=== PATIENT | female | born 1950 | race Caucasian/White ===

== ENCOUNTER 2016-10-15 11:52 | Emergency (ER) | payer OTHER ==
[~2016-10-15] VITALS: Ht 149.9 cm; Wt 85.0 kg
[~2016-10-15 11:52] MED LIST: AMLO10 PO; CIPR250T2 PO; CLIN1CAP5 PO; CORE25TA PO; GLYB1TAB50 PO; NAPR-576 PO; PHEN12.5 PR; RAMI10CA PO
[2016-10-15 11:54] VITALS: BP 185/86; PULSE 66; RESP 20; TEMP 98.7; O2SAT 95
[2016-10-15] MEDS ORDERED: RAMI10CA PO (12:06)
[2016-10-15] MEDS ORDERED: AMLO10 PO (12:06)
[2016-10-15] MEDS ORDERED: GLYB2.5T3 PO (12:06)
[2016-10-15] MEDS ORDERED: CARV25TA PO (12:06)
[2016-10-15] MEDS ORDERED: SODIUM CHLOR 0.9% 1000 ML INJ 1,000 ML IV ONE (12:30)
[2016-10-15] MEDS ORDERED: DIPHTH/TETANUS/ACEL PERTUSSIS (BOOSTER) 0.5 ML VIAL/PFS IM ONE (12:30)
[2016-10-15] MEDS ORDERED: VANCOMYCIN INJ 1,300 MG in SODIUM CHLORID 0.9% 500 ML INJ 500 ML IV ONE (12:30)
[2016-10-15] MEDS ORDERED: MORPHINE SULFATE 4 MG/ML INJ IV PUSH ONE (12:45)
--- NOTE | 2016-10-15 12:49 | PD ---
HPI Chief Complaint: Skin Problem Time Seen by Provider: 12:00 Travel History International Travel<30 days: No Contact w/Intl Traveler<30days: No Traveled to known affect area: No History of Present Illness HPI Patient is a 66 year old female with hx of diabetes, htn, who presents to ER with c/o of abscess to her back. Patient reports that she had an abscess surgically removed 15 years ago while she lived in [place]. Reports that she has noticed a "bump" to her back for the past few months. Reports that for the past week, she has noticed increased swelling and pain to her back. Reports that noticed that the abscess is draining, reports that she has been having chills with no fevers. Reports that tetanus is not up date. PFSH Past Medical History Asthma: No Blood Disorders: No Anxiety: No Depression: No Heart Rhythm Problems: No Cancer: Yes (OVARIAN) Cardiovascular Problems: Yes High Cholesterol: No Chest Pain: No Congestive Heart Failure: No COPD: No Diabetes: Yes Patient Takes Glucophage: No Diminished Hearing: No Endocrine: Yes Genitourinary: No Hypertension: Yes Immune Disorder: No Musculoskeletal: No Neurologic: No Psychiatric: No Reproductive: No Respiratory: No Sleep Apnea: No Thyroid Disease: No Menopausal: Yes Past Surgical History Cholecystectomy: Yes Hysterectomy: Yes Other Surgery: Yes (L KNEE ) Social History Alcohol Use: Yes (occ) Tobacco Use: Yes (1 PPD) Substance Use: No Allergies-Medications (Allergen,Severity, Reaction): Coded Allergies: No Known Allergies (Verified , 10/15/16) Reported Meds & Prescriptions Reported Meds & Active Scripts Active Reported Glyburide 2.5 Mg Tab 2.5 Mg PO DAILY Take with meals at the same time each day Ramipril 10 Mg Cap 10 Mg PO DAILY Carvedilol 25 Mg Tab 25 Mg PO DAILY Norvasc (Amlodipine Besylate) 10 Mg Tab 10 Mg PO DAILY Review of Systems General / Constitutional: No: Fever Eyes: No: Visual changes HENT: No: Headaches Cardiovascular: No: Chest Pain or Discomfort Respiratory: No: Shortness of Breath Gastrointestinal: No: Abdominal Pain Genitourinary: No: Dysuria Musculoskeletal: No: Pain Skin: Positive Other (abscess to back), No Rash Neurologic: No: Weakness Psychiatric: No: Depression Endocrine: No: Polydipsia Hematologic/Lymphatic: No: Easy Bruising Physical Exam Narrative GENERAL: mild distress SKIN: Warm and dry. patient with fluctuant abscess versus infected sebaceous cyst to right mid back HEAD: Atraumatic. Normocephalic. EYES: Pupils equal and round. No scleral icterus. No injection or drainage. ENT: No nasal bleeding or discharge. Mucous membranes pink and moist. NECK: Trachea midline. No JVD. CARDIOVASCULAR: Regular rate and rhythm. No murmur appreciated. RESPIRATORY: No accessory muscle use. Clear to auscultation. Breath sounds equal bilaterally. GASTROINTESTINAL: Abdomen soft, non-tender, nondistended. Hepatic and splenic margins not palpable. MUSCULOSKELETAL: No obvious deformities. No clubbing. No cyanosis. No edema. NEUROLOGICAL: Awake and alert. No obvious cranial nerve deficits. Motor grossly within normal limits. Normal speech. PSYCHIATRIC: Appropriate mood and affect; insight and judgment normal. Data Data Last Documented VS Vital Signs Date Time Temp Pulse Resp B/P Pulse Ox O2 Delivery O2 Flow Rate FiO2 10/15/16 15:14 73 20 181/79 95 Room Air 10/15/16 11:54 98.7 Orders Complete Blood Count With Diff (10/15/16 12:18) Comprehensive Metabolic Panel (10/15/16 12:18) Prothrombin Time / Inr (Pt) (10/15/16 12:18) Act Partial Throm Time (Ptt) (10/15/16 12:18) Urinalysis - C+S If Indicated (10/15/16 12:18) Blood Culture (10/15/16 12:18) Iv Access Insert/Monitor (10/15/16 12:18) Vancomycin Inj (Vancomycin Inj) (10/15/16 12:30) Oyyz-Xoe-Uhyilz (Booster) Inj (Boostrix (10/15/16 12:30) Ct Thorax/ Chest W Iv Contrast (10/15/16 ) Sodium Chlor 0.9% 1000 Ml Inj (Ns 1000 M (10/15/16 12:30) Morphine Inj (Morphine Inj) (10/15/16 12:45) Urine Culture (10/15/16 12:45) Iohexol 350 Inj (Omnipaque 350 Inj) (10/15/16 15:10) Hydromorphone Pf Inj (Dilaudid Pf Inj) (10/15/16 15:15) Labs Laboratory Tests Test 10/15/16 12:45 White Blood Count 16.3 TH/MM3 Red Blood Count 4.44 MIL/MM3 Hemoglobin 12.7 GM/DL Hematocrit 35.9 % Mean Corpuscular Volume 81.0 FL Mean Corpuscular Hemoglobin 28.5 PG Mean Corpuscular Hemoglobin 35.2 % Concent Red Cell Distribution Width 13.1 % Platelet Count 244 TH/MM3 Mean Platelet Volume 8.7 FL Neutrophils (%) (Auto) 78.4 % Lymphocytes (%) (Auto) 12.7 % Monocytes (%) (Auto) 8.3 % Eosinophils (%) (Auto) 0.3 % Basophils (%) (Auto) 0.3 % Neutrophils # (Auto) 12.8 TH/MM3 Lymphocytes # (Auto) 2.1 TH/MM3 Monocytes # (Auto) 1.4 TH/MM3 Eosinophils # (Auto) 0.0 TH/MM3 Basophils # (Auto) 0.1 TH/MM3 CBC Comment DIFF FINAL Differential Comment Prothrombin Time 13.1 SEC Prothromb Time International 1.2 RATIO Ratio Activated Partial 31.4 SEC Thromboplast Time Urine Color YELLOW Urine Turbidity HAZY Urine pH 6.0 Urine Specific [place] 1.024 Urine Protein 30 mg/dL Urine Glucose (UA) NEG mg/dL Urine Ketones NEG mg/dL Urine Occult Blood NEG Urine Nitrite NEG Urine Bilirubin NEG Urine Urobilinogen 4.0 MG/DL Urine Leukocyte Esterase NEG Urine RBC 2 /hpf Urine Squamous Epithelial 3 /hpf Cells Urine Bacteria MOD /hpf Urine Mucus FEW /lpf Microscopic Urinalysis Comment CATH-CULTURE IND Sodium Level 134 MEQ/L Potassium Level 4.1 MEQ/L Chloride Level 95 MEQ/L Carbon Dioxide Level 31.5 MEQ/L Anion Gap 8 MEQ/L Blood Urea Nitrogen 9 MG/DL Creatinine 0.90 MG/DL Estimat Glomerular Filtration 63 ML/MIN Rate Random Glucose 184 MG/DL Calcium Level 8.7 MG/DL Total Bilirubin 1.1 MG/DL Aspartate Amino Transf 9 U/L (AST/SGOT) Alanine Aminotransferase 18 U/L (ALT/SGPT) Alkaline Phosphatase 74 U/L Total Protein 7.6 GM/DL Albumin 3.6 GM/DL MDM Medical Decision Making Medical Screen Exam Complete: Yes Emergency Medical Condition: Yes Interpretation(s) Vital Signs Date Time Temp Pulse Resp B/P Pulse Ox O2 Delivery O2 Flow Rate FiO2 10/15/16 11:54 98.7 66 20 185/86 95 Room Air Differential Diagnosis Abscess, infected sebaceous cyst, cellulitis Narrative Course Patient is a 66 year old female with hx of diabetes, htn, who presents to ER with c/o of abscess to her back. Patient reports that she had an abscess surgically removed 15 years ago while she lived in [place]. Reports that she has noticed a "bump" to her back for the past few months. Reports that for the past week, she has noticed increased swelling and pain to her back. Reports that noticed that the abscess is draining, reports that she has been having chills with no fevers. Reports that tetanus is not up date. Plan to update patient's tetanus from emergency room. We'll give a dose of IV vancomycin. Labs as well as CT of the chest ordered to further evaluate abscess. CBC & BMP Diagram 10/15/16 12:45 CT of the thorax shows a 4.8 x 6.2 cm abscess in the greatest lazara dimension of 4.1cm proximal to distal. I did I&D patient's abscess, I had significant amount of purulent foul-smelling drainage from abscess. Just need for patient to follow-up with general surgeon as I do think that this is an infected sebaceous cyst which will need surgical resection. Patient will call general surgeon first thing in the morning for earliest follow-up appointment. I also discussed with patient need to return to the emergency room and 48 hours for packing removal and wound check. We'll start patient on antibiotics, understands need to return to the emergency room if she develops any fevers or chills. Patient will follow-up with all cultures from today. A copy of patient 's CAT scan report was given to her, she'll bring this her doctor's office for follow-up. Patient reports that she is feeling much better after I&D Procedures Procedure Narrative SKIN: There is an indurated area in the right lower to mid back which measures about 5x7 cm in diameter. 4ml of 1%lidocaine used to numb skin. The abscess was fluctuant with areas of purulent drainage. There is a zone of inflammation around it but no lymphangitis. an 11 blade scapel was used to make a cruciate incision to the area, a significant amount of cheesy thick purulent pus was removed. Abscess was explored for loculations. Area irrigated with NS. Abscess is packed with 1/2cm packing. Dressings placed after procedure Diagnosis Primary Impression: Abscess Additional Impression: UTI (urinary tract infection) Qualified Code: N30.00 - Acute cystitis without hematuria Referrals: Ken Salcedo MD Patient Instructions: General Instructions Additional Instructions: Please return to the emergency room in 48 hours for packing removal and for wound check Please return to the emergency room if you develop any fevers or chills Please call general surgeon first thing in the morning for earliest follow-up appointment Please bring your CT report to your doctor's office for follow up on all findings from today Please take antibiotics as prescribed Please follow-up with cultures from today Please do not drive while taking narcotic pain medications Med/Other Pt SpecificInfo: Prescription(s) given Scripts Oxycodone-Acetaminophen (Percocet)5-325 mg Tab1 Tab PO Q6H PRN (PAIN) #10 TAB Ref 0 Prov:Leslie Warner DO 10/15/16 Sulfamethoxazole-Trimethoprim (Bactrim DS)800-160 Mg Tab2 Tab PO BID 10 Days Ref 0 Prov:Leslie Warner DO 10/15/16 Cephalexin (Keflex)500 Mg [id number] Mg PO Q6H 10 Days Ref 0 Prov:Leslie Warner DO 10/15/16 Disposition: 01 DISCHARGE HOME Condition: Stable Leslie Warner DO Oct 15, 2016 12:49
[2016-10-15 13:09] LABS: AUTOMATED NEUTROPHIL # 12.8 TH/MM3 (1.8-7.7); BASOPHIL # 0.1 TH/MM3 (0-0.2); BASOPHIL % 0.3 % (0.0-2.0); EOSINOPHIL % 0.3 % (0.0-4.0); HEMATOCRIT 35.9 % (35.0-46.0); HEMO FLAGS DIFF FINAL; LYMPH % 12.7 % (9.0-44.0); LYMPHOCYTE # 2.1 TH/MM3 (1.0-4.8); MEAN CORPUSCULAR HEMOGLOBIN 28.5 PG (27.0-34.0); MEAN CORPUSCULAR HGB CONC 35.2 % (32.0-36.0); MONO % 8.3 % (0.0-8.0); NEUT % 78.4 % (16.0-70.0); PLATELET COUNT 244 TH/MM3 (150-450); RED BLOOD COUNT 4.44 MIL/MM3 (4.00-5.30); RED CELL DISTRIBUTION WIDTH 13.1 % (11.6-17.2); WHITE BLOOD COUNT 16.3 TH/MM3 (4.0-11.0)
[2016-10-15 13:20] LABS: APTT (PATIENT) 31.4 SEC (24.3-30.1); INTERNATIONAL NORMALIZED RATIO 1.2 RATIO; PROTHROMBIN TIME - PATIENT 13.1 SEC (9.8-11.6)
[2016-10-15 13:23] LABS: BACTERIA, URINE MOD /hpf; BLOOD, URINE NEG (NEG); GLUCOSE,URINE NEG (NEG); KETONE, URINE NEG (NEG); MUCUS URINE FEW /lpf (OCC); NITRITE,URINE NEG (NEG); SQUAMOUS EPITHELIAL CELL URINE 3 /hpf (0-5); URINE COLOR YELLOW (YELLW/STRAW)
[2016-10-15 13:28] LABS: COMMENT (UR) CATH-CULTURE IND; CULTURE IF INDICATED CATH CULTURE IND
[2016-10-15 13:36] LABS: ANION GAP 8 MEQ/L (5-15); AST (GOT) 9 U/L (15-37); BICARBONATE 31.5 MEQ/L (21.0-32.0); BLOOD UREA NITROGEN 9 MG/DL (7-18); CHLORIDE 95 MEQ/L (98-107); GLOMERULAR FILTRATION RATE 63 ML/MIN (>89); POTASSIUM 4.1 MEQ/L (3.5-5.1); SODIUM (NA) 134 MEQ/L (136-145)
[2016-10-15 13:40] LABS: ALKALINE PHOSPHATASE 74 U/L (45-117); ALT (GPT) 18 U/L (10-53); TOTAL BILIRUBIN ADULT 1.1 MG/DL (0.2-1.0)
[2016-10-15] MEDS ORDERED: IOHEXOL 350 MG/ML 10 ML VIAL (for RAD DIAG) IV ONE (15:10)
[2016-10-15 15:14] VITALS: BP 181/79; PULSE 73; RESP 20; O2SAT 95
[2016-10-15] MEDS ORDERED: HYDROmorphone HCL PF 1 MG/ML VIAL IV PUSH ONE ×2 (15:15→17:15)
--- NOTE | 2016-10-15 15:37 | RADRPT ---
EXAM DATE/TIME: 10/15/2016 14:54 [facility] COMPARISON: No previous studies available for comparison. INDICATIONS : Right upper back pain, evaluate for abscess. IV CONTRAST: 70 cc Omnipaque 350 (iohexol) IV RADIATION DOSE: 5.71 CTDIvol (mGy) MEDICAL HISTORY : Hypertension. ovarian cancer, diabetes SURGICAL HISTORY : Hysterectomy. ENCOUNTER: Initial ACUITY: 1 week PAIN SCALE: 6/10 LOCATION: Right upper back TECHNIQUE: Volumetric scanning of the chest was performed. Using automated exposure control and adjustment of t he mA and/or kV according to patient size, radiation dose was kept as low as reasonably achievable to obtain optimal diagnostic quality images. FINDINGS: Subcutaneous air and fluid collection is seen near the level of T11 and T12, just right of midline. T his is estimated at approximately 4.8 x 6.2 cm in greatest transaxial dimension and 4.1 cm proximal t o distal. Superficial margin of the collection is just beneath the skin. The deep margin abuts the pa raspinous muscles and medial margin of the latissimus but I don't see deep soft tissue extension. No acute bony abnormality demonstrated. Minimal atelectasis of the visualized lung bases. No pleural effusion or pneumothorax. Heart siz e within normal limits. There is coronary artery calcification. Upper abdomen only partly included on the study. Patient has had previous cholecystectomy. There is air in the biliary tree, nonspecific but presumably chronic and related to previous sphincterotom y. The rest of the visualized upper abdomen is within normal limits. CONCLUSION: Posterior lower thoracic subcutaneous abscess as above. The air and fluid collection is slightly righ t of midline at the level of T11 and T12. No deep soft tissue involvement. No osteomyelitis.. Sunny Salas MD on October 15, 2016 at 15:31 Board Certified Radiologist. This report was verified electronically.
[2016-10-15] MEDS ORDERED: PERC5TAB12 PO (16:58)
[2016-10-15] MEDS ORDERED: BACT800T5 PO (16:58)
[2016-10-15] MEDS ORDERED: CEPH-460 PO (16:58)
[2016-10-15 17:00] VITALS: BP 162/73; PULSE 78; RESP 16; O2SAT 97
== END 2016-10-15 20:02 | disposition home or self-care (01) ==
LOC: NEPC 11:52
DX: L02.212 Cutaneous abscess of back [any part, except buttock and flank] (principal); N39.0 Urinary tract infection, site not specified; E11.9 Type 2 diabetes mellitus without complications; I10 Essential (primary) hypertension; F17.210 Nicotine dependence, cigarettes, uncomplicated; B96.89 Other specified bacterial agents as the cause of diseases classified elsewhere
CPT/HCPCS: 10061; 71260; 80053; 81001; 85025; 85610; 85730; 87040; 87070; 87086; 87185; 90471; 90715; 96365; 96366; 96375; 96376; 99284; J1170; J2270; J3370; J7030; J7040; Q9967; 87205

== ENCOUNTER 2016-10-18 10:18 | Emergency (ER) | payer OTHER ==
[~2016-10-18] VITALS: Ht 149.9 cm; Wt 85.0 kg
[~2016-10-18 10:18] MED LIST changes: +BACT800T5 PO; +CARV25TA PO; +CEPH-460 PO; -CIPR250T2 PO; -CLIN1CAP5 PO; -CORE25TA PO; -GLYB1TAB50 PO; +GLYB2.5T3 PO; -NAPR-576 PO; +PERC5TAB12 PO; -PHEN12.5 PR
[2016-10-18 10:19] VITALS: BP 207/89; PULSE 52; RESP 14; TEMP 98.1; O2SAT 98
--- NOTE | 2016-10-18 10:58 | PD ---
HPI Chief Complaint: Wound/Suture/Staple Re-Check Time Seen by Provider: 10:40 Travel History International Travel<30 days: No Contact w/Intl Traveler<30days: No Traveled to known affect area: No History of Present Illness HPI This 66-year-old woman with a back abscess drained 2 days ago with a small cruciate incision and packed. Here for wound check. She reports she is placed on antibiotics. She's had some improvement saw some pain. She otherwise has been doing well. History Past Medical History Narrative Medical Hypertension Cardiovascular problems Menopausal: Yes Social History Alcohol Use: Yes (occ) Tobacco Use: Yes (1 PPD) Allergies-Medications (Allergen,Severity, Reaction): Coded Allergies: No Known Allergies (Verified , 10/18/16) Reported Meds & Prescriptions Reported Meds & Active Scripts Active Percocet (Oxycodone-Acetaminophen) 5-325 mg Tab 1 Tab PO Q6H PRN Bactrim DS (Sulfamethoxazole-Trimethoprim) 800-160 Mg Tab 2 Tab PO BID 10 Days Keflex (Cephalexin) 500 Mg Cap 500 Mg PO Q6H 10 Days Reported Glyburide 2.5 Mg Tab 2.5 Mg PO DAILY Take with meals at the same time each day Ramipril 10 Mg Cap 10 Mg PO DAILY Carvedilol 25 Mg Tab 25 Mg PO DAILY Norvasc (Amlodipine Besylate) 10 Mg Tab 10 Mg PO DAILY Review of Systems Except as stated in HPI: all other systems reviewed are Neg Physical Exam Narrative GENERAL: Well-appearing 66-year-old woman, no acute distress. SKIN: Back exam shows some denuded skin. There is a small central cruciate incision. There is some induration surrounding it. A large amount of packing was removed from the small incision. Given this apparent size a cavity, and the small incision was used to drain it, I did replace a small gauze wick, about 6 inches or so. Data Data Last Documented VS Vital Signs Date Time Temp Pulse Resp B/P Pulse Ox O2 Delivery O2 Flow Rate FiO2 10/18/16 10:19 98.1 52 14 207/89 98 Room Air MDM Medical Decision Making Medical Screen Exam Complete: Yes Emergency Medical Condition: Yes Differential Diagnosis Abscess, cellulitis, other Narrative Course Medical decision-making new para 66 old woman with an abscess, drained 2 days ago. Appears to be healing well. I replaced the wick and given the previous size of it, recommended [place] wound check in 48 hours. Diagnosis Primary Impression: Abscess Additional Instructions: Continue warm compresses and wound care 3 times daily. Continue antibiotics. Follow-up with your primary doctor or return here in 48 hours for 1 more wound check. Med/Other Pt SpecificInfo: No Change to Meds Disposition: 01 DISCHARGE HOME Condition: Stable Cragi Bill MD Oct 18, 2016 10:58
== END 2016-10-18 11:22 | disposition home or self-care (01) ==
LOC: NEPB 10:18
DX: L02.212 Cutaneous abscess of back [any part, except buttock and flank] (principal); I10 Essential (primary) hypertension; F17.200 Nicotine dependence, unspecified, uncomplicated; Z86.79 Personal history of other diseases of the circulatory system
CPT/HCPCS: 99281

== ENCOUNTER 2016-10-20 11:21 | Emergency (ER) | payer OTHER ==
[~2016-10-20] VITALS: Ht 149.9 cm; Wt 85.0 kg
[2016-10-20 11:22] VITALS: BP 144/70; PULSE 58; RESP 20; TEMP 98; O2SAT 98
--- NOTE | 2016-10-20 11:40 | PD ---
HPI Chief Complaint: Wound/Suture/Staple Re-Check Time Seen by Provider: 11:30 Travel History International Travel<30 days: No Contact w/Intl Traveler<30days: No Traveled to known affect area: No History of Present Illness HPI 66-year-old female presents for packing removal. She was seen here in October 15 with a large infected cyst on the right thoracic back region. Incision and drainage was performed and packing was placed. She was started on antibiotics. She returned here 2 days ago to have the packing removed. The packing was replaced and she was encouraged to return again for wound recheck or she reports improvement in her symptoms, decreased pain, decreased redness and swelling. She plans on following up with her primary care physician in about one week in order to get a referral to have the cystic lesion definitively removed. She has no other complaints. PFSH Past Medical History Asthma: No Blood Disorders: No Anxiety: No Depression: No Heart Rhythm Problems: No Cancer: Yes (OVARIAN) Cardiovascular Problems: Yes High Cholesterol: No Chest Pain: No Congestive Heart Failure: No COPD: No Diabetes: Yes Diminished Hearing: No Endocrine: Yes Genitourinary: No Hypertension: Yes Immune Disorder: No Musculoskeletal: No Neurologic: No Psychiatric: No Reproductive: No Respiratory: No Sleep Apnea: No Thyroid Disease: No Menopausal: Yes Past Surgical History Cholecystectomy: Yes Hysterectomy: Yes Other Surgery: Yes (L KNEE ) Social History Alcohol Use: Yes (occ) Tobacco Use: Yes (1 PPD) Substance Use: No Allergies-Medications (Allergen,Severity, Reaction): Coded Allergies: No Known Allergies (Verified , 10/18/16) Reported Meds & Prescriptions Reported Meds & Active Scripts Active Percocet (Oxycodone-Acetaminophen) 5-325 mg Tab 1 Tab PO Q6H PRN Bactrim DS (Sulfamethoxazole-Trimethoprim) 800-160 Mg Tab 2 Tab PO BID 10 Days Keflex (Cephalexin) 500 Mg Cap 500 Mg PO Q6H 10 Days Reported Glyburide 2.5 Mg Tab 2.5 Mg PO DAILY Take with meals at the same time each day Ramipril 10 Mg Cap 10 Mg PO DAILY Carvedilol 25 Mg Tab 25 Mg PO DAILY Norvasc (Amlodipine Besylate) 10 Mg Tab 10 Mg PO DAILY Review of Systems General / Constitutional: No: Fever, Chills Skin: Positive Other (positive for itching, pain, packing in place) Physical Exam Narrative GENERAL: Well-developed well-nourished female in no acute distress SKIN: Warm and dry. Examination reveals a large cystic structure in the right thoracic back region. Packing was removed. There is no erythema. Minimal drainage at this time. Significantly improved from previous descriptions of the visit. CARDIOVASCULAR: Regular rate and rhythm. No murmur appreciated. RESPIRATORY: No accessory muscle use. Clear to auscultation. Breath sounds equal bilaterally. Data Data Last Documented VS Vital Signs Date Time Temp Pulse Resp B/P Pulse Ox O2 Delivery O2 Flow Rate FiO2 10/20/16 11:22 98.0 58 20 144/70 98 Room Air MDM Medical Decision Making Medical Screen Exam Complete: Yes Emergency Medical Condition: Yes Medical Record Reviewed: Yes Differential Diagnosis Packing removal, abscess recheck, cellulitis Narrative Course The infected abscessed cystic lesion appears to be improving and the packing was removed. Local wound care provided. Recommended outpatient follow-up as scheduled with her primary care physician. Diagnosis Primary Impression: Encounter for wound re-check Additional Instructions: Warm baths 15-20 minutes at a time 2-3 times a day. Keep the area covered with clean gauze. Follow-up with primary care physician as scheduled and return for any emergent medical conditions. Med/Other Pt SpecificInfo: Wound Care Disposition: 01 DISCHARGE HOME Condition: Stable Dexter Arzola Oct 20, 2016 11:40
== END 2016-10-20 11:47 | disposition home or self-care (01) ==
LOC: NEPB 11:21
DX: Z48.817 Encounter for surgical aftercare following surgery on the skin and subcutaneous tissue (principal)
CPT/HCPCS: 99281